=== PATIENT | female | born 1995 | race Two or more races ===

== ENCOUNTER 2017-01-19 23:32 | Emergency (ER) | payer MEDICAID ==
[~2017-01-19] VITALS: Ht 154.9 cm; Wt 86.2 kg
[~2017-01-19 23:32] MED LIST: IBUPROFEN600 MG ORAL; NORCO 5-325 TA1 EACH ORAL; VALIUM5 MG ORAL
[2017-01-19 23:41] VITALS: BP 124/64
[2017-01-20] MEDS ORDERED: Ipratropium 0.02% Inh Soln 2.5ml UD HHN ONE
[2017-01-20] MEDS ORDERED: Albuterol ud Inhalation HHN ONE
[2017-01-20 00:09] LABS: BASOPHILS % (AUTO) 0.8 % (0.0-2.0); EOSINOPHILS % (AUTO) 2.3 % (0.0-3.0); MEAN CORPUSCULAR HEMOGLOBIN 29.9 PG (27.0-31.0); MEAN CORPUSCULAR HGB CONC 33.9 G/DL (32.0-36.0); MEAN CORPUSCULAR VOLUME 88 FL (80-99); MEAN PLATELET VOLUME 6.2 FL (6.5-10.1); MONOCYTES % (AUTO) 7.3 % (1.0-10.0); NEUTROPHILS % (AUTO) 58.5 % (45.0-75.0); PLATELET COUNT 338 K/UL (150-450); RED BLOOD COUNT 4.73 M/UL (4.20-5.40); RED CELL DISTRIBUTION WIDTH 11.7 % (11.6-14.8); WHITE BLOOD COUNT 11.2 K/UL (4.8-10.8)
[2017-01-20 00:22] LABS: ANION GAP 8 mmol/L (5-15); CALCIUM 9.5 MG/DL (8.5-10.1); CARBON DIOXIDE 28 MMOL/L (21-32); CHLORIDE 107 MMOL/L (98-107); CREATININE 0.9 MG/DL (0.55-1.30); GLOMERULAR FILTRATION RATE > 60 mL/min (>60); POTASSIUM 3.8 MMOL/L (3.5-5.1); SODIUM 143 MMOL/L (136-145)
[2017-01-20 00:27] LABS: ALANINE AMINOTRANSFERASE 27 U/L (12-78); ALBUMIN/GLOBULIN RATIO 0.9 (1.0-2.7); ASPARTATE AMINO TRANSFERASE 22 U/L (15-37); TOTAL PROTEIN 8.6 G/DL (6.4-8.2)
[2017-01-20 00:59] LABS: APPEARANCE,URINE CLEAR; KETONES,URINE NEGATIVE (NEGATIVE); LEUKOCYTE ESTERASE ,URINE NEGATIVE (NEGATIVE); NITRITE,URINE NEGATIVE (NEGATIVE); PH,URINE 5 (4.5-8.0); PROTEIN,URINE 1+ (NEGATIVE); UROBILINOGEN,URINE NORMAL MG/DL (0.0-1.0)
[2017-01-20 01:09] LABS: RBC,URINE 0-2 /HPF (0 - 2); SQUAMOUS EPITHELIAL CELL,UR OCCASIONAL /LPF (NONE/OCC); WBC,URINE 0-2 /HPF (0 - 2)
[2017-01-20 01:10] LABS: MUCUS,URINE FEW /LPF (NONE/OCC)
[2017-01-20] MEDS ORDERED: ZOFRAN ODT4 MG ORAL (01:24)
[2017-01-20] MEDS ORDERED: PROMETHAZINE-C118 M1 ORAL (01:24)
[2017-01-20] MEDS ORDERED: AMOXICILLIN500 MG ORAL (01:24)
[2017-01-20 01:41] VITALS: BP 118/60
[2017-01-20 01:45] VITALS: BP 118/61
--- NOTE | 2017-01-20 02:02 | Emergency Room Report ---
History of Present Illness General Chief Complaint: Vomiting Source: Patient Present Illness HPI 21-year-old female presents to ED for evaluation. States the last 2 days she's been having a cough with nausea and vomiting. Unable to keep fluids down. Cough is productive with yellowish phlegm. Denies fevers, no chills. Denies dysuria or hematuria. Did not receive flu vaccination this year. Denies sick contacts or recent travel. No other aggravating relieving factors. Denies any other associated symptoms Allergies: Coded Allergies: No Known Allergies (Unverified , 06/15/13) Patient History Past Medical History: none Past Surgical History: none Pertinent Family History: none Social History: Denies: smoking, alcohol use, drug use Last Menstrual Period: 01/03/17 Now: No Immunizations: UTD Reviewed Nursing Documentation: PMH: Agreed, PSxH: Agreed Nursing Documentation-PMH Past Medical History: No Stated History Review of Systems All Other Systems: negative except mentioned in HPI Physical Exam Vital Signs Date Time Temp Pulse Resp B/P (MAP) Pulse Ox O2 Delivery O2 Flow Rate FiO2 01/19/17 23:36 97.9 111 17 124/64 96 Room Air 01/20/17 00:04 21 Sp02 EP Interpretation: reviewed, normal General Appearance: no apparent distress, alert, GCS 15, non-toxic Head: normocephalic, atraumatic Eyes: bilateral eye normal inspection, bilateral eye PERRL ENT: hearing grossly normal, no angioedema, normal voice, pharyngeal erythema Neck: full range of motion, supple/symm/no masses Respiratory: chest non-tender, normal breath sounds, crackles, speaking full sentences Cardiovascular #1: regular rate, rhythm, no edema Cardiovascular #2: 2+ carotid (R), 2+ carotid (L), 2+ radial (R), 2+ radial (L) , 2+ dorsalis pedis (R), 2+ dorsalis pedis (L) Gastrointestinal: normal bowel sounds, non tender, soft, non-distended, no guarding, no rebound Rectal: deferred Genitourinary: normal inspection, no CVA tenderness Musculoskeletal: back normal, gait/station normal, normal range of motion, non- tender Neurologic: alert, oriented x3, responsive, motor strength/tone normal, sensory intact, speech normal Psychiatric: judgement/insight normal, memory normal, mood/affect normal, no suicidal/homicidal ideation Reflexes: 3+ bicep (R), 3+ bicep (L), 3+ tricep (R), 3+ tricep (L), 3+ knee (R) , 3+ knee (L) Skin: normal color, no rash, warm/dry, well hydrated Lymphatic: no adenopathy Medical Decision Making Diagnostic Impression: Primary Impression: Atypical pneumonia Additional Impression: Vomiting Qualified Codes: R11.2 - Nausea with vomiting, unspecified ER Course Hospital Course 21-year-old female presents to ED complaining of chills, coughing, vomiting Differential diagnoses include: URI, bronchitis, asthma/COPD, pneumonia Clinical course Patient placed on stretcher. After initial history, physical exam reveals a female in no acute distress. Bilateral TM unremarkable. Noted pharyngeal erythema. No tonsillar exudates. No lymphadenopathy. crackles on exam I ordered labs, IV fluids, nebs, zofran, chest x-ray. Labs reviewed-leukocytosis noted, hemoglobin/hematocrit stable, electrolytes okay, flu swab negative, UA negative Chest x-ray shows possible infiltrate On reassessment patient states he feels better. Per curb-65 criteria, patient does not require admission. Patient can be safely discharged to home with outpatient therapy. Patient agrees with plan. Diagnosis - atypical pneumonia , vomiting Stable and discharged home with prescriptions for zofran, amoxicillin, promethazine/codeine. Instructed to followup with PMD. Return to ED if symptoms recur or worsen Labs Test 01/19/17 23:55 01/20/17 00:25 White Blood Count 11.2 K/UL (4.8-10.8) Red Blood Count 4.73 M/UL (4.20-5.40) Hemoglobin 14.1 G/DL (12.0-16.0) Hematocrit 41.7 % (37.0-47.0) Mean Corpuscular Volume 88 FL (80-99) Mean Corpuscular Hemoglobin 29.9 PG (27.0-31.0) Mean Corpuscular Hemoglobin Concent 33.9 G/DL (32.0-36.0) Red Cell Distribution Width 11.7 % (11.6-14.8) Platelet Count 338 K/UL (150-450) Mean Platelet Volume 6.2 FL (6.5-10.1) Neutrophils (%) (Auto) 58.5 % (45.0-75.0) Lymphocytes (%) (Auto) 31.0 % (20.0-45.0) Monocytes (%) (Auto) 7.3 % (1.0-10.0) Eosinophils (%) (Auto) 2.3 % (0.0-3.0) Basophils (%) (Auto) 0.8 % (0.0-2.0) Sodium Level 143 MMOL/L (136-145) Potassium Level 3.8 MMOL/L (3.5-5.1) Chloride Level 107 MMOL/L (98-107) Carbon Dioxide Level 28 MMOL/L (21-32) Anion Gap 8 mmol/L (5-15) Blood Urea Nitrogen 14 mg/dL (7-18) Creatinine 0.9 MG/DL (0.55-1.30) Estimat Glomerular Filtration Rate > 60 mL/min (>60) Glucose Level 102 MG/DL (74-106) Calcium Level 9.5 MG/DL (8.5-10.1) Total Bilirubin 0.4 MG/DL (0.2-1.0) Aspartate Amino Transf (AST/SGOT) 22 U/L (15-37) Alanine Aminotransferase (ALT/SGPT) 27 U/L (12-78) Alkaline Phosphatase 93 U/L (46-116) Total Protein 8.6 G/DL (6.4-8.2) Albumin 4.0 G/DL (3.4-5.0) Globulin 4.6 g/dL Albumin/Globulin Ratio 0.9 (1.0-2.7) Urine Color Pale yellow Urine Appearance Clear Urine pH 5 (4.5-8.0) Urine Specific [place] 1.020 (1.005-1.035) Urine Protein 1+ (NEGATIVE) Urine Glucose (UA) Negative (NEGATIVE) Urine Ketones Negative (NEGATIVE) Urine Occult Blood Negative (NEGATIVE) Urine Nitrite Negative (NEGATIVE) Urine Bilirubin Negative (NEGATIVE) Urine Urobilinogen Normal MG/DL (0.0-1.0) Urine Leukocyte Esterase Negative (NEGATIVE) Urine RBC 0-2 /HPF (0 - 2) Urine WBC 0-2 /HPF (0 - 2) Urine Squamous Epithelial Cells Occasional /LPF Urine Bacteria None /HPF (NONE) Urine Mucus Few /LPF (NONE/OCC) Urine HCG, Qualitative Negative Chest X-Ray Diagnostic Results Chest X-Ray Diagnostic Results : Chest X-Ray Ordered: Yes # of Views/Limited/Complete: 1 View Indication: Other - cough EP Interpretation: Yes Interpretation: no pneumothorax, no acute cardiopulmonary disease, other - RLL atelectasis/consolidation Impression: Other - pneumonia Electronically Signed by: Electronically signed by Saleem Mike MD Last Vital Signs Date Time Temp Pulse Resp B/P (MAP) Pulse Ox O2 Delivery O2 Flow Rate FiO2 01/20/17 01:45 97.9 102 18 118/61 99 Room Air 21 Status: improved Disposition: HOME, SELF-CARE Condition: Stable Scripts Ondansetron Odt* (ZOFRAN ODT*) 4 Mg Tab.rapdis 4 MG ORAL Q6H Y for Nausea & Vomiting, #30 TAB 0 Refills Prov: SALEEM MIKE M.D. 01/20/17 Codeine/Promethazine Hcl* (PROMETHAZINE-CODEINE SYRUP*) 118 Ml Syrup 5 ML ORAL Q6H Y for For Cough, #118 ML 0 Refills Prov: SALEEM MIKE M.D. 01/20/17 Amoxicillin* (AMOXIL*) 500 Mg Capsule 500 MG ORAL THREE TIMES A DAY, #21 CAP Prov: SALEEM MIKE M.D. 01/20/17 Referrals: [facility]/,REFERRING (PCP) Patient Instructions: Community-Acquired Pneumonia, Adult, Ekbi-cy-Inci SALEEM MIKE M.D. Jan 20, 2017 02:02
--- NOTE | 2017-01-20 09:51 | Diagnostic Imaging Report ---
Indication: COUGH Technique: XRAY CHEST 1 V Comparison: None. Findings: The cardiomediastinal silhouette is normal. The lungs are clear. There is no evidence of pleural fluid. The bones are unremarkable. Impression: Normal chest.
== END 2017-01-20 01:45 | disposition home or self-care (01) ==
LOC: EMR 23:50
DX: J18.9 Pneumonia, unspecified organism (principal); R11.2 Nausea with vomiting, unspecified
CPT/HCPCS: 36415; 71010; 80053; 81003; 81025; 85025; 86710; 94640; 94664; 96374; 96375; 99284; J2405

== ENCOUNTER 2017-04-21 21:49 | Emergency (ER) | payer MEDICAID ==
[~2017-04-21] VITALS: Ht 154.9 cm; Wt 88.5 kg
[~2017-04-21 21:49] MED LIST changes: +AMOXICILLIN500 MG ORAL; +PROMETHAZINE-C118 M1 ORAL; +ZOFRAN ODT4 MG ORAL
[2017-04-21 22:05] VITALS: BP 132/74
[2017-04-21] MEDS ORDERED: TAMIFLU75 MG ORAL (22:19)
[2017-04-21] MEDS ORDERED: IBUPROFEN600 MG ORAL (22:19)
[2017-04-21] MEDS ORDERED: CORTISPORIN EAR10 ML RIGHT EAR (22:19)
--- NOTE | 2017-04-21 22:20 | Emergency Room Report ---
History of Present Illness General Chief Complaint: Earache Source: Patient Present Illness HPI Is a 21-year-old female with no past medical history. She presents with chief complaint of ear pain. She's been swimming a lot in her right ear has been hurting for the last to 3 days. She also has a cough and congestion. Pain got worse today and she had a fever today. No nausea no vomiting. Has generalized body pain. Denies any other complaint. No drainage. Allergies: Coded Allergies: No Known Allergies (Unverified , 06/15/13) Patient History Past Medical History: see triage record, old chart reviewed Past Surgical History: none Pertinent Family History: none Social History: Denies: smoking Last Menstrual Period: mar 31 Now: No Immunizations: other Reviewed Nursing Documentation: PMH: Agreed, PSxH: Agreed Review of Systems Constitutional: Reports: fever Eye: Denies: eye pain, blurred vision ENT: Reports: ear pain, Denies: nose congestion, throat swelling Respiratory: Reports: cough, Denies: shortness of breath Cardiovascular: Denies: chest pain, palpitations Gastrointestinal: Denies: abdominal pain, diarrhea, nausea, vomiting Musculoskeletal: Denies: back pain, joint pain Skin: Denies: rash Neurological: Denies: headache, numbness Endocrine: Denies: increased thirst, increased urine Hematologic/Lymphatic: Denies: easy bruising All Other Systems: negative except mentioned in HPI Physical Exam Vital Signs Date Time Temp Pulse Resp B/P (MAP) Pulse Ox O2 Delivery O2 Flow Rate FiO2 04/21/17 22:00 98.6 87 18 132/74 99 Room Air 98.6 vitals normal Sp02 EP Interpretation: reviewed, normal General Appearance: well appearing, no apparent distress, alert Head: normocephalic, atraumatic Eyes: bilateral eye PERRL, bilateral eye EOMI ENT: hearing grossly normal, normal pharynx, other - Right ear: Tenderness with movement of [place]. Externa canal showed edema and erythema. TM normal but hard to visualize Neck: full range of motion, supple, no meningismus Respiratory: chest non-tender, lungs clear, normal breath sounds Cardiovascular #1: regular rate, rhythm, no murmur Gastrointestinal: normal bowel sounds, non tender, no mass, no organomegaly, no bruit, non-distended Musculoskeletal: back normal, gait/station normal, normal range of motion Psychiatric: mood/affect normal Skin: warm/dry Medical Decision Making Diagnostic Impression: Primary Impression: Otitis externa of right ear Qualified Codes: H60.331 - Swimmer's ear, right ear Additional Impression: Influenza-like illness ER Course Patient with otitis externa. No evidence of mastoiditis or meningitis. With a fever today and body pain, most likely influenza-like illness or other viral infection. We'll discharge home. Last Vital Signs Date Time Temp Pulse Resp B/P (MAP) Pulse Ox O2 Delivery O2 Flow Rate FiO2 04/21/17 22:00 98.6 87 18 132/74 99 Room Air 98.6 Status: improved Disposition: HOME, SELF-CARE Condition: Stable Scripts Neomycin/Polymyxin B Sulf/Hc* (CORTISPORIN EAR SOLUTION*) 10 Ml Solution 4 DROP RIGHT EAR QID, #10 ML 0 Refills Prov: JENNIFER KERNS M.D. 04/21/17 Oseltamivir Phosphate (Tamiflu) 75 Mg Capsule 75 MG ORAL TWICE A DAY, #10 CAP Prov: JENNIFER KERNS M.D. 04/21/17 Ibuprofen* (MOTRIN*) 600 Mg Tablet 600 MG ORAL THREE TIMES A DAY, #30 TAB 0 Refills Prov: JENNIFER KERNS M.D. 04/21/17 Patient Instructions: Otitis Externa, [id number] Additional Instructions: Follow-up with your DrLeslye in 2-3 days. Return if symptom worsen. JENNIFER KERNS M.D. Apr 21, 2017 22:20
[2017-04-21 22:28] VITALS: BP 132/74
== END 2017-04-21 22:28 | disposition home or self-care (01) ==
LOC: EMR 22:19
DX: H60.91 Unspecified otitis externa, right ear (principal); J11.1 Influenza due to unidentified influenza virus with other respiratory manifestations
CPT/HCPCS: 99284

== ENCOUNTER 2017-06-10 23:13 | Emergency (ER) | payer MEDICAID ==
[~2017-06-10] VITALS: Ht 154.9 cm; Wt 87.1 kg
[~2017-06-10 23:13] MED LIST changes: +CORTISPORIN EAR10 ML RIGHT EAR; +TAMIFLU75 MG ORAL
[2017-06-10 23:25] VITALS: BP 127/84
--- NOTE | 2017-06-10 23:36 | Emergency Room Report ---
History of Present Illness General Chief Complaint: General Complaint Source: Patient Present Illness HPI Is a 21-year-old female with no past medical history. She presents with chief complaint of swelling to the right side of her neck area. Onset a week ago. Getting bigger and more tender and pressure. No trauma. No fever chills. no dental pain. Allergies: Coded Allergies: No Known Allergies (Unverified , 06/15/13) Patient History Past Medical History: see triage record, old chart reviewed Past Surgical History: none Pertinent Family History: none Social History: Denies: smoking Last Menstrual Period: 2 weeks ago Now: No Immunizations: other Reviewed Nursing Documentation: PMH: Agreed; PSxH: Agreed Review of Systems Eye: Denies: eye pain, blurred vision ENT: Denies: ear pain, nose congestion, throat swelling Respiratory: Denies: cough, shortness of breath Cardiovascular: Denies: chest pain, palpitations Gastrointestinal: Denies: abdominal pain, diarrhea, nausea, vomiting Musculoskeletal: Denies: back pain, joint pain Skin: Denies: rash Neurological: Denies: headache, numbness Endocrine: Denies: increased thirst, increased urine Hematologic/Lymphatic: Denies: easy bruising All Other Systems: negative except mentioned in HPI Physical Exam Vital Signs Date Time Temp Pulse Resp B/P (MAP) Pulse Ox O2 Delivery O2 Flow Rate FiO2 06/10/17 23:17 98.2 69 18 127/84 100 Room Air 98.2 vitals normal Sp02 EP Interpretation: reviewed, normal General Appearance: well appearing, no apparent distress, alert Head: normocephalic, atraumatic Eyes: bilateral eye PERRL, bilateral eye EOMI ENT: hearing grossly normal, normal pharynx, other - She has a right submandibular mass measuring about 3 cm. Mildly tender but no redness. I see no obvious calcified stone in her mouth. Neck: full range of motion, supple, no meningismus Respiratory: chest non-tender, lungs clear, normal breath sounds Cardiovascular #1: regular rate, rhythm, no murmur Gastrointestinal: normal bowel sounds, non tender, no mass, no organomegaly, no bruit, non-distended Musculoskeletal: back normal, gait/station normal, normal range of motion Psychiatric: mood/affect normal Skin: warm/dry Medical Decision Making Diagnostic Impression: Primary Impression: Submandibular lymphadenopathy ER Course Patient presents with left adenopathy of the submandibular gland. This may be infectious in nature from her dental infection versus obstruction of the salivary gland. No evidence of neoplastic process. We'll discharge home. Lab Results Impression labs normal CT/MRI/US Diagnostic Results CT/MRI/US Diagnostic Results : Imaging Test Ordered: CT soft tissue neck Impression read by radiologist CT C SPINE: Right submandibular space lymphadenopathy may represent an infectious or inflammatory process No significant glandular enlargement or inflammation. No stones. No fluid collection Radiologist: Rickey Marie MD Last Vital Signs Date Time Temp Pulse Resp B/P (MAP) Pulse Ox O2 Delivery O2 Flow Rate FiO2 06/10/17 23:25 98.2 69 18 127/84 100 Room Air 98.2 Status: improved Disposition: HOME, SELF-CARE Condition: Stable Scripts Amoxicillin/Potassium Clav 875-125* (AUGMENTIN 875-125 TABLET*) 1 Each Tablet 1 TAB ORAL TWICE A DAY, #14 TAB Prov: JENNIFER KERNS M.D. 06/11/17 Referrals: [facility],REFERRING (PCP) Additional Instructions: Follow-up your doctor in 7 days. If not better you'll may knee referred to get a biopsy. Return if symptom worsen. JENNIFER KERNS M.D. Jun 10, 2017 23:36
[2017-06-10] MEDS ORDERED: Isovue-370 150ml vial INJ PRN (23:45)
[2017-06-10] MEDS ORDERED: Ketorolac 30mg Inj IV ONE (23:45)
[2017-06-11 00:17] LABS: BASOPHILS % (AUTO) 1.1 % (0.0-2.0); EOSINOPHILS % (AUTO) 3.3 % (0.0-3.0); HEMATOCRIT 41.4 % (37.0-47.0); HEMOGLOBIN 14.5 G/DL (12.0-16.0); MEAN CORPUSCULAR VOLUME 85 FL (80-99); MONOCYTES % (AUTO) 6.5 % (1.0-10.0); NEUTROPHILS % (AUTO) 57.1 % (45.0-75.0); PLATELET COUNT 245 K/UL (150-450); RED BLOOD COUNT 4.88 M/UL (4.20-5.40); RED CELL DISTRIBUTION WIDTH 12.3 % (11.6-14.8); WHITE BLOOD COUNT 8.7 K/UL (4.8-10.8)
[2017-06-11 00:21] LABS: ANION GAP 10 mmol/L (5-15); BLOOD UREA NITROGEN 8 mg/dL (7-18); CALCIUM 9.4 MG/DL (8.5-10.1); CARBON DIOXIDE 27 MMOL/L (21-32); CHLORIDE 102 MMOL/L (98-107); CREATININE 0.8 MG/DL (0.55-1.30); POTASSIUM 3.5 MMOL/L (3.5-5.1); SODIUM 139 MMOL/L (136-145)
[2017-06-11 01:20] VITALS: BP 113/69
[2017-06-11] MEDS ORDERED: AUGMENTIN 875-1 EAC1 ORAL (01:27)
[2017-06-11 01:30] VITALS: BP 113/69
--- NOTE | 2017-06-11 10:13 | Diagnostic Imaging Report ---
Indication: 21-year-old female with right neck mass and swelling. Presents with pain, tenderness and pressure. Technique: Continuous helical imaging of the neck was obtained transaxially from the skull base to the upper thoracic spine during intravenous administration of nonionic contrast. 2-D coronal and sagittal reformatted images were obtained. Total Dose length Product (DLP): [address] Dose Index Volume (CTDIvol): 0.25, 8.11, 81.11, 17.8 mGy Comparison: None Findings: The submandibular gland itself is normal and symmetric to the contralateral side. There are few nodes however noted in the submandibular region the largest of which measures 2 x 1.6 cm. The nature of the submandibular adenopathy is not known but there may be inflammatory. Short interval follow-up is recommended as warranted clinically. A follow-up CT is not absolutely essential as the nodes are clinically palpable. Given pain and tenderness, it is highly likely that the nodes are inflammatory in nature. A few cervical nodes are also demonstrated bilaterally but these nodes are tiny measuring 5 mm or less. The parotid glands, thyroid gland appear normal. There are no abnormal fluid collections. There is no abscess identified. Paranasal sinuses and skull base appear normal. The area of the oral pharynx, tonsils, parapharyngeal fat, epiglottis, aryepiglottic folds, larynx, subglottic airway appear normal. Cervical spine is unremarkable. IMPRESSION: Right submandibular lymphadenopathy, likely inflammatory/infectious in nature given presented history of abrupt onset of swelling, pain and tenderness. Clinical monitoring and follow-up evaluation is recommended. If there is no clinical improvement, suggest reimaging and further workup. The CT scanner at [facility] is accredited by the [employer] and the scans are performed using dose optimization techniques as appropriate to a performed exam including Automatic Exposure control.
== END 2017-06-11 01:30 | disposition home or self-care (01) ==
LOC: EMR 23:33
DX: R59.0 Localized enlarged lymph nodes (principal)
CPT/HCPCS: 36415; 70491; 80048; 81025; 85025; 96374; 99284; J1885; Q9967

== ENCOUNTER 2018-09-24 20:37 | Emergency (ER) | payer MEDICAID ==
[~2018-09-24] VITALS: Ht 154.9 cm; Wt 73.5 kg
[~2018-09-24 20:37] MED LIST changes: +AUGMENTIN 875-1 EAC1 ORAL
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
[2018-09-24] MEDS ORDERED: NAPROXEN250 MG ORAL (20:59)
[2018-09-24] MEDS ORDERED: Acetaminophen 500mg (ES) tab ORAL ONE (21:00)
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
[2018-09-24 21:28] VITALS: BP 139/79
[2018-09-24 21:32] VITALS: BP 139/79
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
== END 2018-09-24 21:33 | disposition home or self-care (01) ==
LOC: EMR 20:59
DX: M54.9 Dorsalgia, unspecified (principal); V43.52XA Car driver injured in collision with other type car in traffic accident, initial encounter; Y92.410 Unspecified street and highway as the place of occurrence of the external cause
CPT/HCPCS: 81025; 99282